=== PATIENT | female | born 1990 | race Caucasian/White ===

== ENCOUNTER 2018-04-10 11:49 | Emergency (ER) | payer OTHER ==
[2018-04-10 12:06] VITALS: BP 110/45; PULSE 70; BMI 32.6
[2018-04-10] MEDS ORDERED: diazePAM 5 MG TABLET PO ONE (12:47)
--- NOTE | 2018-04-10 12:47 | PDOC ---
History of Present Illness - General Chief Complaint: Back Pain Stated Complaint: BACK PAIN Time Seen by Provider: 04/10/18 12:22 History Source: Patient Exam Limitations: No Limitations - History of Present Illness Initial Comments: 04/10/18 13:28 Pt is a 27 y/o F with hx of back pain, who presents to the ED with lower back pain. Pt states the pain started yesterday morning when she woke up. She states she has had spasms in the past. She states that moving makes the pain worse. Denies trauma or falling. She tried taking Motrin at home with little relief of symptoms. She states the pain is mostly on the L side. Denies, fevers, chills, n /v/d, hematuria, frequency, numbness and tingling to the extremities, weakness to the extremities, saddle anesthesia, bladder/bowel incontinence. Past History - Travel Traveled outside of the country in the last 30 days: No Close contact w/someone who was outside of country & ill: No - Past Medical History Allergies/Adverse Reactions: Allergies Allergy/AdvReac Type Severity Reaction Status Date / Time No Known Allergies Allergy Verified 04/10/18 12:06 Home Medications: Ambulatory Orders Diazepam [Valium] 2 mg PO DAILY #10 tablet MDD 1 04/10/18 COPD: No CHF: No Other medical history: BACK pain - Suicide/Smoking/Psychosocial Hx Smoking History: Never smoked Have you smoked in the past 12 months: No Information on smoking cessation initiated: No Hx Alcohol Use: No Drug/Substance Use Hx: No Review of Systems - Review of Systems Able to Perform ROS?: Yes Comments:: 04/10/18 13:25 CONSTITUTIONAL: Absent: fever, chills, diaphoresis, generalized weakness, malaise, loss of appetite HEENT: Absent: rhinorrhea, nasal congestion, throat pain, throat swelling, difficulty swallowing, mouth swelling, ear pain, eye pain, visual Changes CARDIOVASCULAR: Absent: chest pain, loss of consciousness, palpitations, irregular heart rate, peripheral edema RESPIRATORY: Absent: cough, shortness of breath, dyspnea with exertion, orthopnea, wheezing, stridor, hemoptysis GASTROINTESTINAL: Absent: abdominal pain, abdominal distension, nausea, vomiting, diarrhea, constipation, melena, hematochezia GENITOURINARY: Absent: dysuria, frequency, urgency, hesitancy, hematuria, flank pain, genital pain MUSCULOSKELETAL: Present: low back pain Absent: myalgia, arthralgia, joint swelling SKIN: Absent: rash, itching, pallor HEMATOLOGIC/IMMUNOLOGIC: Absent: easy bleeding, easy bruising, lymphadenopathy, frequent infections ENDOCRINE: Absent: unexplained weight gain, unexplained weight loss, heat intolerance, cold intolerance NEUROLOGIC: Absent: headache, focal weakness or paresthesias, dizziness, unsteady gait, seizure, mental status changes, bladder or bowel incontinence PSYCHIATRIC: Absent: anxiety, depression, suicidal or homicidal ideation, hallucinations. Is the patient limited Ukrainian proficient: No *Physical Exam - Vital Signs Last Vital Signs Temp Pulse Resp BP Pulse Ox 70 16 110/45 L 100 04/10/18 12:03 04/10/18 12:03 04/10/18 12:03 04/10/18 12:03 - Physical Exam Comments: 04/10/18 13:25 GENERAL: Well developed, well nourished. Awake and alert. Pt appears uncomfortable, laying on exam bed in pain. HEENT: Normocephalic, atraumatic. PERRLA, EOMI. No conjunctival pallor. Sclera are non- icteric. Moist mucous membranes. Oropharynx is clear. NECK: Supple. Full ROM. No JVD. Carotid pulses 2+ and symmetric, without bruits. No thyromegaly. No lymphadenopathy. CARDIOVASCULAR: Regular rate and rhythm. No murmurs, rubs, or gallops. Distal pulses are 2+ and symmetric. PULMONARY: No evidence of respiratory distress. Lungs clear to auscultation bilaterally. No wheezing, rales or rhonchi. ABDOMINAL: Soft. Non-tender. Non-distended. No rebound or guarding. No organomegaly. Normoactive bowel sounds. MUSCULOSKELETAL TTP of the low back along the paraspinous muscles of L3-L5. Normal range of motion at all joints. Midline tenderness from L2-L5. No bony deformities. (+) CVA tenderness (L). EXTREMITIES: No cyanosis. No clubbing. No edema. No calf tenderness. SKIN: Warm and dry. Normal capillary refill. No rashes. No jaundice. NEUROLOGICAL: Alert, awake, appropriate. Cranial nerves 2-12 intact. No deficits to light touch and temperature in face, upper extremities and lower extremities. No motor deficits in the in face, upper extremities and lower extremities. Normoreflexic in the upper and lower extremities. Normal speech. Toes are down- going bilaterally. Gait is normal without ataxia. PSYCHIATRIC: Cooperative. Good eye contact. Appropriate mood and affect. Moderate Sedation - Procedure Monitoring Vital Signs: Procedure Monitoring Vital Signs Temperature Pulse Rate 70 04/10/18 12:03 Respiratory Rate 16 04/10/18 12:03 Blood Pressure 110/45 L 04/10/18 12:03 O2 Sat by Pulse Oximetry (%) 100 04/10/18 12:03 ED Treatment Course - LABORATORY CBC & Chemistry Diagram: 04/10/18 12:40 04/10/18 12:40 *DC/Admit/Observation/Transfer Diagnosis at time of Disposition: Low back pain Qualifiers: Chronicity: acute Back pain laterality: left Sciatica presence: without sciatica Qualified Code(s): M54.5 - Low back pain - Discharge Dispostion Disposition: HOME Condition at time of disposition: Stable Decision to Admit order: No - Referrals Referrals: Beto Hinds MD [Staff Physician] - Beto Venegas MD [Staff Physician] - - Patient Instructions Printed Discharge Instructions: DI for Low Back Pain Additional Instructions: You have low back pain due to a muscle spasm. Please take ibuprofen 800 mg 3 times a day not to exceed 3000 mg a day. You were also prescribed valium. Please take this medication every 8 hours for the first day. Then take the medication before you go to bed. Do not drive after taking this medication as it may make you sleepy. You may use warm compresses on your back to help with her symptoms. Please follow-up with your primary care doctor. If your symptoms do not resolve in 3-5 days, follow-up with orthopedics. A referral has been provided for you. Return to the emergency department if you have worsening back pain, bladder or bowel incontinence, numbness and tingling in her legs, changes in the way you walk, or any new or worsening symptoms. - Post Discharge Activity Forms/Work/School Notes: Back to Work
[2018-04-10] MEDS ORDERED: ACETAMINOPHEN 1000 MG/100 ML VIAL (NON FORMULARY) IVPB ONE (12:48)
[2018-04-10] MEDS ORDERED: ACETAMINOPHEN INJECTION 100 ML IVPB ONE (12:53)
[2018-04-10] MEDS ORDERED: diazePAM 5 MG TABLET ONE (12:55)
[2018-04-10 13:16] LABS: BASO % 0.8 % (0-2.0); EOS % 1.6 % (0-4.5); HEMATOCRIT 34.1 % (32.4-45.2); HEMOGLOBIN 11.6 GM/dL (10.7-15.3); LYMPH % 27.2 % (8-40); MCHC 33.9 g/dl (32.0-36.0); MEAN CELL VOLUME 85.4 fl (80-96); MONO % 5.6 % (3.8-10.2); NEUT % 64.8 % (42.8-82.8); PLATELET COUNT 210 K/MM3 (134-434); RBC 3.99 M/mm3 (3.60-5.2); RDW 14.1 % (11.6-15.6); WHITE BLOOD COUNT 9.3 K/mm3 (4.0-10.0)
[2018-04-10 13:43] LABS: ALBUMIN 3.7 g/dl (3.4-5.0); ALK PHOS 55 U/L (45-117); ANION GAP 6 MMOL/L (8-16); BILIRUBIN,TOTAL 0.5 mg/dL (0.2-1); BLOOD UREA NITROGEN 16 mg/dL (7-18); CALCIUM 8.6 mg/dL (8.5-10.1); CHLORIDE 108 mmol/L (98-107); CO2 24 mmol/L (21-32); CREATININE 0.8 mg/dL (0.55-1.3); GLUCOSE,RANDOM 87 mg/dL (74-106); POTASSIUM 4.5 mmol/L (3.5-5.1); SGOT/AST 19 U/L (15-37); SGPT/ALT 22 U/L (13-61); SODIUM 138 mmol/L (136-145); TOT PROT 7.1 g/dl (6.4-8.2)
[2018-04-10] MEDS ORDERED: KETOROLAC TROMETHAMINE 30 MG/1 ML VIAL IVPUSH ONE (15:02)
[2018-04-10] MEDS ORDERED: KETOROLAC TROMETHAMINE 30 MG/1 ML VIAL ONE (15:07)
== END 2018-04-10 16:39 | disposition home or self-care (01) ==
LOC: JERFT 11:49 → JER 11:49 → JERFT 16:39
PROC: 3E033NZ Introduction of Analgesics, Hypnotics, Sedatives into Peripheral Vein, Percutaneous Approach (ICD-10-PCS; principal; 2018-04-10)
PROC: 3E0333Z Introduction of Anti-inflammatory into Peripheral Vein, Percutaneous Approach (ICD-10-PCS; 2018-04-10)
DX: M54.5 Low back pain (principal)
CPT/HCPCS: 36415; 74176; 80053; 84702; 85025; 99282-25; J0131

== ENCOUNTER 2019-04-01 13:12 | Emergency (ER) | payer OTHER ==
[2019-04-01 13:18] VITALS: BP 116/60; PULSE 78; TEMP 97.9; BMI 31.9
--- NOTE | 2019-04-01 16:51 | PDOC ---
History of Present Illness - General Chief Complaint: Headache Stated Complaint: RT SIDE HEADACHE Time Seen by Provider: 04/01/19 14:06 - History of Present Illness Initial Comments: 04/01/19 16:50 28-year-old female without comorbidities presents for evaluation of syncope in the shower 2 days ago Past History - Past Medical History Allergies/Adverse Reactions: Allergies Allergy/AdvReac Type Severity Reaction Status Date / Time No Known Allergies Allergy Verified 04/10/18 12:06 Home Medications: Ambulatory Orders NK [No Known Home Medication] 04/01/19 COPD: No CHF: No Other medical history: denies - Immunization History Immunization Up to Date: Yes - Psycho Social/Smoking Cessation Hx Smoking History: Never smoked Have you smoked in the past 12 months: No Information on smoking cessation initiated: No Hx Alcohol Use: No Drug/Substance Use Hx: No Review of Systems - Review of Systems Neurological: Yes: See HPI *Physical Exam - Vital Signs Last Vital Signs Temp Pulse Resp BP Pulse Ox 97.9 F 78 20 116/60 99 04/01/19 13:14 04/01/19 13:14 04/01/19 13:14 04/01/19 13:14 04/01/19 13:14 - Physical Exam 04/01/19 16:50 GENERAL: The patient is awake, alert, and fully oriented, in no acute distress. HEAD: Normal with no signs of trauma. EYES: sclera anicteric, conjunctiva clear. ENT: Ears normal tympanic membranes normal oropharynx clear uvula midline NECK: Normal range of motion LUNGS: Breath sounds equal, clear to auscultation bilaterally. No wheezes, and no crackles. HEART: S1 and S2 without murmur, rub or gallop. ABDOMEN: Soft, nontender, normoactive bowel sounds. No guarding, no rebound. No masses. EXTREMITIES: Normal range of motion, no edema. No clubbing or cyanosis. No cords, erythema, or tenderness. NEUROLOGICAL: Cranial nerves II through XII grossly intact. Normal speech, normal gait. PSYCH: Normal mood, normal affect. SKIN: Warm, Dry, normal turgor, no rashes or lesions noted. ED Treatment Course - ADDITIONAL ORDERS Additional order review: Laboratory Results 04/01/19 15:30 Urine HCG, Qual Negative - RADIOLOGY Radiology Studies Ordered: Category Date Time Status HEAD CT WITHOUT CONTRAST [CT] Stat CT Scan 04/01/19 15:04 Completed Medical Decision Making - Medical Decision Making 04/01/19 16:[address] of the head patient is not patient waited 2 days to come to the emergency room her symptoms have resolved. She can follow-up with her primary care physician at this point Discharge - Discharge Information Problems reviewed: Yes Clinical Impression/Diagnosis: Atypical syncope Condition: Stable Disposition: HOME - Admission No - Follow up/Referral Referrals: August Bowen MD [Staff Physician] - - Patient Discharge Instructions Patient Printed Discharge Instructions: Fainting, DI for Syncope in Adults ( Fainting) Additional Instructions: Return to the emergency room for worsening symptoms and without fail follow-up with your primary care physician in 1 to 2 days for further evaluation and treatment options. - Post Discharge Activity
--- NOTE | 2019-04-02 09:07 | EKG ---
Test Reason : Blood Pressure : / mmHG Vent. Rate : 060 BPM Atrial Rate : 060 BPM P-R Int : 130 ms QRS Dur : 080 ms QT Int : 410 ms P-R-T Axes : 051 073 053 degrees QTc Int : 410 ms NORMAL SINUS RHYTHM NORMAL ECG NO PREVIOUS ECGS AVAILABLE Confirmed by Constantine Pizarro MD ([id number]) on 04/02/2019 9:07:04 AM Referred By: Confirmed By:Constantine Pizarro MD
== END 2019-04-01 16:57 | disposition home or self-care (01) ==
LOC: JERFT 13:12
DX: R55 Syncope and collapse (principal)
CPT/HCPCS: 70450-TC; 84703; 93005; 93010; 99282-25